=== PATIENT | male | born 1975 | race Caucasian/White ===

== ENCOUNTER → 2023-03-24 15:44 | Outpatient (CLI) | payer OTHER, MEDICAID, SELFPAY ==
--- NOTE | 2023-03-24 15:45 | DI.US.S_ITS ---
ULTRASOUND OF RIGHT BREAST AND AXILLA: 03/24/2023 CLINICAL: Palpable right axilla lump. No prior exams were available for comparison. Real-time ultrasound of the right breast axilla was performed. Guevara scale images of the real-time examination were reviewed. No significant abnormalities were seen sonographically in the right axilla. IMPRESSION: NEGATIVE There is no sonographic evidence of malignancy. There is no abnormality seen in the right axilla to correspond with the area of clinical concern, however, clinical correlation and clinical followup are recommended. If new or worsening symptoms develop, consider repeat imaging with ultrasound or MRI. This exam was interpreted at Station ID: [id number]. Electronically Signed By: Ajit Thompson M.D. lc/:03/24/2023 16:12:42 letter sent: Clinical Evaluation Ultrasound BI-RADS: 1 Negative
== END ==
PROVIDERS: Referring Provider Nurse Practitioner Family; Visit Provider Nurse Practitioner Family
DX: N63.31 Unspecified lump in axillary tail of the right breast (principal)
CPT/HCPCS: 76882

== ENCOUNTER → 2023-04-06 09:46 | Outpatient (CLI) | payer OTHER, MEDICAID, SELFPAY ==
[2023-04-06 11:46] LABS: Add Manual Diff / Slide Review NO; Basophils Absolute Auto 0 /uL (0-100); Basophils Percent Auto 0.8 % (0-2); Eosinophils Absolute Auto 100 /uL (0-450); Eosinophils Percent Auto 1.6 % (2-4); Hematocrit 41.5 % (41-53); Hemoglobin 14.3 g/dL (13.5-17.5); Lymphocytes Absolute Auto 2000 /uL (1100-4500); Lymphocytes Percent Auto 41.8 % (25-40); Mean Corpuscular HGB Conc 34.4 % (30-36); Mean Corpuscular Hemoglobin 31.1 PG (26-34); Mean Corpuscular Volume 90.5 fL (80-100); Monocytes Absolute Auto 400 /uL (0-900); Neutrophils Absolute Auto 2200 /uL (1500-7000); Neutrophils Percent Auto 47.8 % (50-75); Platelet Count 221 X10^3/uL (150-400); Red Blood Cell Count 4.59 X10^6/uL (4.5-5.9); Red Cell Distribution Width 12.8 % (11.6-14.8); White Blood Cell Count 4.7 X10^3/uL (4.5-11.0)
[2023-04-06 11:54] LABS: Alanine Aminotransferase 21 IU/L (<50); Albumin 4.4 g/dL (3.5-5.0); Albumin Globulin Ratio 1.5 (1.0-2.8); Alkaline Phosphatase 48 U/L (38-126); Aspartate Aminotransferase 26 IU/L (17-59); BUN Creatinine Ratio 15.9 (6-22); Bilirubin Total 0.5 mg/dL (0.2-1.3); Blood Urea Nitrogen 13 mg/dL (9-20); Calcium 9.1 mg/dL (8.4-10.2); Carbon Dioxide 28 mmol/L (22-32); Chloride 103 mmol/L (98-107); Cholesterol 188 mg/dL (140-199); Estimated Glomerular Filt Rate > 60 mL/min (>60); Globulin 2.9 g/dL (1.7-4.1); Glucose 83 mg/dL (70-100); HDL Cholesterol 40 mg/dL (40-60); HEMOLYSIS < 15 (0-50); LDL Cholesterol Calculated 138 mg/dL (<100); Potassium 3.9 mmol/L (3.4-5.1); Sodium 140 mmol/L (137-145); Total Protein 7.3 g/dL (6.3-8.2); Triglycerides 52 mg/dL (35-150)
[2023-04-06 12:21] LABS: TSH w/ Reflex to FT4 1.23 uIU/mL (0.47-4.68)
== END ==
PROVIDERS: PCP Family Medicine; Referring Provider Family Medicine; Visit Provider Family Medicine
DX: Z00.00 Encounter for general adult medical examination without abnormal findings (principal)
CPT/HCPCS: 36415; 80053; 80061; 84443; 85025